=== PATIENT | male | born 1980 | race Caucasian/White ===

== ENCOUNTER 2017-11-26 22:49 | Emergency (ER) | payer SELFPAY ==
[~2017-11-26] VITALS: Ht 188 cm; Wt 119.0 kg
[2017-11-27 00:36] LABS: HEMATOCRIT 34.5 % (39.0-50.0); HEMOGLOBIN 11.8 g/dl (14.0-18.0); IMMATURE GRANULOCYTES 0.5 % (0.0-1.0); MEAN CELL VOLUME 92.7 fL CALC (80.0-100.0); MEAN CORPUSCULAR HGB 31.7 pG CALC (26.0-32.0); MEAN CORPUSCULAR HGB CONC 34.2 g/L CALC (32.0-36.0); NEUT# 16.97 thou/uL (1.82-7.42); RED BLOOD COUNT 3.72 mill/uL (4.70-6.10); RED CELL DISTRI WIDTH 13.1 % (11.5-15.5)
[2017-11-27 00:40] LABS: URINE BILIRUBIN - DIPSTICK NEGATIVE (NEGATIVE); URINE BLOOD DIPSTICK SMALL (NEGATIVE); URINE COLOR YELLOW; URINE GLUCOSE - DIPSTICK >=1000 mg/dL (NEGATIVE); URINE KETONE NEGATIVE (NEGATIVE); URINE LEUK ESTERASE NEGATIVE (Negative); URINE NITRITE - DIPSTICK NEGATIVE (Negative); URINE PROTEIN - DIPSTICK >=300 mg/dL (NEG-TRACE); URINE SPECIFIC GRAVITY 1.025; URINE UROBILINOGEN - DIPSTICK 0.2 E.U./dL (0.2)
[2017-11-27 00:48] LABS: ALBUMIN 3.5 g/dL (3.2-5.0); BILIRUBIN, TOTAL 0.9 mg/dL (0.0-1.4); CREATININE 2.4 mg/dL (0.7-1.3); POTASSIUM 4.5 mmol/l (3.5-5.1); TOTAL PROTEIN 6.8 g/dL (6.3-8.2)
[2017-11-27 00:53] LABS: INTERNATIONAL NORMALIZED RATIO 0.9 RATIO (0.7-1.3); PROTHROMBIN TIME 10.5 SECONDS (9.0-12.5)
[2017-11-27 00:55] LABS: URINE CLARITY CLEAR
[2017-11-27 01:03] LABS: URINE BACTERIA FEW hpf; URINE SQUAMOUS EPITHELIAL CELL FEW EPI/hpf (0-FEW)
[2017-11-27] MEDS ORDERED: AUGMENTIN875TAB PO (01:42)
[2017-11-27] MEDS ORDERED: METFORMIN500 M1 PO (01:42)
[2017-11-27] MEDS ORDERED: BACTRIM DS1 TAB PO (01:42)
[2017-11-27 03:30] VITALS: BP 151/75
== END 2017-11-27 03:30 | disposition left against medical advice (07) | DRG 638 ==
LOC: ED 22:49 → ED-I 11-27 00:45 → ED 11-27 03:30
PROVIDERS: Emergency Medicine
DX: E11.621 Type 2 diabetes mellitus with foot ulcer (principal); L97.429 Non-pressure chronic ulcer of left heel and midfoot with unspecified severity; E11.628 Type 2 diabetes mellitus with other skin complications; L03.116 Cellulitis of left lower limb; F17.210 Nicotine dependence, cigarettes, uncomplicated; Z91.19 Patient's noncompliance with other medical treatment and regimen

== ENCOUNTER 2018-01-12 17:46 | Emergency (ER) | payer SELFPAY ==
[~2018-01-12] VITALS: Ht 188 cm; Wt 100.0 kg
[~2018-01-12 17:46] MED LIST: AUGMENTIN875TAB PO; BACTRIM DS1 TAB PO; METFORMIN500 M1 PO
[2018-01-12 19:05] LABS: HEMATOCRIT 33.6 % (39.0-50.0); HEMOGLOBIN 11.5 g/dl (14.0-18.0); IMMATURE GRANULOCYTES 0.5 % (0.0-5.0); MEAN CELL VOLUME 92.6 fL CALC (80.0-100.0); MEAN CORPUSCULAR HGB 31.7 pG CALC (26.0-32.0); MEAN CORPUSCULAR HGB CONC 34.2 g/L CALC (32.0-36.0); NEUT# 8.1 thou/uL (1.82-7.42); RED BLOOD COUNT 3.63 mill/uL (4.70-6.10); RED CELL DISTRI WIDTH 13.2 % (11.5-15.5)
[2018-01-12 19:14] LABS: ALBUMIN 3.1 g/dL (3.2-5.0); BILIRUBIN, TOTAL 0.6 mg/dL (0.0-1.4); CREATININE 2.5 mg/dL (0.7-1.3); POTASSIUM 4.8 mmol/l (3.5-5.1); TOTAL PROTEIN 6.1 g/dL (6.3-8.2)
[2018-01-12 20:00] VITALS: BP 148/88
== END 2018-01-12 19:49 | disposition left against medical advice (07) | DRG 103 ==
LOC: ED 17:46
PROVIDERS: Emergency Medicine
DX: R51 Headache (principal); I10 Essential (primary) hypertension; E11.9 Type 2 diabetes mellitus without complications; F41.9 Anxiety disorder, unspecified; F17.210 Nicotine dependence, cigarettes, uncomplicated; Z91.19 Patient's noncompliance with other medical treatment and regimen; Z79.899 Other long term (current) drug therapy

== ENCOUNTER 2020-01-07 22:53 | Emergency (ER) | payer BC ==
[~2020-01-07] VITALS: Ht 188 cm; Wt 110.0 kg
[~2020-01-07 22:53] MED LIST changes: +LISINOPRIL10 MG PO; +METFORMIN500 MG PO
[2020-01-07] MEDS ORDERED: NORVASC PO (23:18)
[2020-01-07] MEDS ORDERED: GABAPENTIN100 MG PO (23:19)
[2020-01-07] MEDS ORDERED: LYRICA25 MG PO (23:20)
[2020-01-07] MEDS ORDERED: [UNRECOGNIZED DRUG - OTHER] (23:22)
[2020-01-07 23:55] VITALS: BP 176/75
== END 2020-01-07 23:55 | disposition home or self-care (01) | DRG 919 ==
LOC: ED 22:53
DX: T85.898A Other specified complication of other internal prosthetic devices, implants and grafts, initial encounter (principal); N18.6 End stage renal disease; I12.0 Hypertensive chronic kidney disease with stage 5 chronic kidney disease or end stage renal disease; E11.22 Type 2 diabetes mellitus with diabetic chronic kidney disease; Y83.8 Other surgical procedures as the cause of abnormal reaction of the patient, or of later complication, without mention of misadventure at the time of the procedure; Z99.2 Dependence on renal dialysis; Z79.84 Long term (current) use of oral hypoglycemic drugs

== ENCOUNTER 2020-04-11 07:15 | Emergency (ER) | payer BC ==
[~2020-04-11] VITALS: Ht 188 cm; Wt 104.5 kg
[~2020-04-11 07:15] MED LIST changes: +GABAPENTIN100 MG PO; +LYRICA25 MG PO; +NORVASC PO; +[UNRECOGNIZED DRUG - OTHER]
[2020-04-11 08:10] LABS: HEMATOCRIT 30.6 % (39.0-50.0); HEMOGLOBIN 9.7 g/dl (14.0-18.0); IMMATURE GRANULOCYTES 0.2 % (0.0-5.0); MEAN CORPUSCULAR HGB 31.4 pG CALC (26.0-32.0); MEAN CORPUSCULAR HGB CONC 31.7 g/dL CAL (32.0-36.0); NEUT# 7.13 thou/uL (1.82-7.42); RED BLOOD COUNT 3.09 mill/uL (4.70-6.10); RED CELL DISTRI WIDTH 13.2 % (11.5-15.5)
[2020-04-11 08:25] LABS: POTASSIUM 4.3 mmol/l (3.5-5.1)
[2020-04-11 08:33] LABS: ALBUMIN 4.1 g/dL (3.2-5.0); TOTAL PROTEIN 6.8 g/dL (6.3-8.2)
[2020-04-11 08:34] LABS: CREATININE 11.1 mg/dL (0.7-1.3)
[2020-04-11] MEDS ORDERED: MEDDOSEPAK PO (12:04)
[2020-04-11 12:50] VITALS: BP 145/65
== END 2020-04-11 12:50 | disposition left against medical advice (07) | DRG 915 ==
LOC: ED 07:15 → ED-I 11:50 → ED 12:50
DX: T78.3XXA Angioneurotic edema, initial encounter (principal); N18.6 End stage renal disease; I12.0 Hypertensive chronic kidney disease with stage 5 chronic kidney disease or end stage renal disease; F41.9 Anxiety disorder, unspecified; E11.22 Type 2 diabetes mellitus with diabetic chronic kidney disease; Z99.2 Dependence on renal dialysis; Z91.19 Patient's noncompliance with other medical treatment and regimen

== ENCOUNTER 2021-01-22 21:36 | Emergency (ER) | payer BC, MEDICARE ==
[~2021-01-22] VITALS: Ht 188 cm; Wt 90.0 kg
[~2021-01-22 21:36] MED LIST changes: +MEDDOSEPAK PO
[2021-01-22 22:22] LABS: HEMATOCRIT 24.2 % (39.0-50.0); HEMOGLOBIN 7.7 g/dl (14.0-18.0); IMMATURE GRANULOCYTES 0.3 % (0.0-5.0); MEAN CELL VOLUME 102.1 fL CALC (80.0-100.0); MEAN CORPUSCULAR HGB 32.5 pG CALC (26.0-32.0); MEAN CORPUSCULAR HGB CONC 31.8 g/dL CAL (32.0-36.0); NEUT# 7.95 thou/uL (1.82-7.42); RED BLOOD COUNT 2.37 mill/uL (4.70-6.10); RED CELL DISTRI WIDTH 12.2 % (11.5-15.5)
[2021-01-22 22:39] LABS: D-DIMER 0.59 mg/L (0.19-0.60)
[2021-01-22 22:40] LABS: BILIRUBIN, TOTAL 0.7 mg/dL (0.0-1.4); POTASSIUM 5.1 mmol/l (3.5-5.1)
[2021-01-22 22:45] LABS: ALBUMIN 2.6 g/dL (3.2-5.0); CREATININE 9.4 mg/dL (0.7-1.3); TOTAL PROTEIN 5.2 g/dL (6.3-8.2)
[2021-01-22 22:51] LABS: ACT PARTIAL THROMBO TIME 24.6 SECONDS (20.0-32.5); PROTHROMBIN TIME 10.9 SECONDS (9.0-12.5)
[2021-01-22 23:45] VITALS: BP 153/80
== END 2021-01-23 06:03 | disposition home or self-care (01) | DRG 204 ==
LOC: ED 21:36
PROVIDERS: Family Medicine
DX: R06.00 Dyspnea, unspecified (principal); N18.6 End stage renal disease; I12.0 Hypertensive chronic kidney disease with stage 5 chronic kidney disease or end stage renal disease; E11.22 Type 2 diabetes mellitus with diabetic chronic kidney disease; F41.9 Anxiety disorder, unspecified; Z99.2 Dependence on renal dialysis

== ENCOUNTER 2021-12-14 08:00 | Emergency (ER) | payer BC, MEDICARE, MEDICAID ==
[~2021-12-14] VITALS: Ht 188 cm; Wt 90.9 kg
[2021-12-14 08:10] VITALS: BP 202/100
[2021-12-14 08:22] VITALS: BP 179/88
[2021-12-14] MEDS ORDERED: RENVELA800 MG PO (08:41)
[2021-12-14] MEDS ORDERED: VITAMIN D1.25 MG (08:41)
[2021-12-14] MEDS ORDERED: FUROSEMIDE80 M1 PO (08:41)
[2021-12-14] MEDS ORDERED: PHOSLO667 MG PO (08:42)
[2021-12-14] MEDS ORDERED: HYDROCODONE BIT1 TA7 (08:42)
[2021-12-14] MEDS ORDERED: NIFEDIPINE ER60 MG PO (08:43)
[2021-12-14 08:59] LABS: IMMATURE GRANULOCYTES 0.2 % (0.0-5.0); MEAN CORPUSCULAR HGB 32.3 pG CALC (26.0-32.0); MEAN CORPUSCULAR HGB CONC 31.4 g/dL CAL (32.0-36.0); NEUT# 5.26 thou/uL (1.82-7.42); RED BLOOD COUNT 3.34 mill/uL (4.70-6.10); RED CELL DISTRI WIDTH 13.1 % (11.5-15.5)
[2021-12-14 09:00] LABS: URINE BILIRUBIN - DIPSTICK NEGATIVE (NEGATIVE); URINE BLOOD DIPSTICK LARGE (NEGATIVE); URINE COLOR RED; URINE GLUCOSE - DIPSTICK 250 mg/dL (NEGATIVE); URINE KETONE TRACE mg/dL (NEGATIVE); URINE LEUK ESTERASE SMALL (NEGATIVE); URINE NITRITE - DIPSTICK POSITIVE (Negative); URINE PH 8.5 (4.5-8.0); URINE PROTEIN - DIPSTICK >=300 mg/dL (NEG-TRACE)
[2021-12-14 09:01] LABS: URINE RBC TNTC RBC/hpf (0-5)
[2021-12-14 09:02] LABS: HEMATOCRIT 34.4 % (39.0-50.0); HEMOGLOBIN 10.8 g/dl (14.0-18.0)
[2021-12-14 09:29] LABS: BILIRUBIN, TOTAL 0.6 mg/dL (0.0-1.4); TOTAL PROTEIN 6.1 g/dL (6.3-8.2)
[2021-12-14 09:37] LABS: ALBUMIN 3.6 g/dL (3.2-5.0)
[2021-12-14 09:38] LABS: CREATININE 14.3 mg/dL (0.7-1.3); POTASSIUM 6.1 mmol/l (3.5-5.1)
[2021-12-14 10:19] VITALS: BP 179/88
== END 2021-12-14 11:00 | disposition left against medical advice (07) | DRG 640 ==
LOC: ED 08:00
PROVIDERS: Family Medicine
DX: E87.5 Hyperkalemia (principal); N18.6 End stage renal disease; N13.30 Unspecified hydronephrosis; I12.0 Hypertensive chronic kidney disease with stage 5 chronic kidney disease or end stage renal disease; E11.22 Type 2 diabetes mellitus with diabetic chronic kidney disease; Z99.2 Dependence on renal dialysis; Z91.19 Patient's noncompliance with other medical treatment and regimen